=== PATIENT | female | born 1995 ===

== ENCOUNTER 2020-08-20 08:05 | Emergency (ER) | payer OTHER ==
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
[2020-08-20 10:45] VITALS: BP 113/67
== END 2020-08-20 10:40 | disposition home or self-care (01) ==
LOC: ER 08:05
DX: M79.602 Pain in left arm (principal); V48.5XXA Car driver injured in noncollision transport accident in traffic accident, initial encounter; F17.200 Nicotine dependence, unspecified, uncomplicated
CPT/HCPCS: 99283